=== PATIENT | male | born 1940 | race Caucasian/White ===

== ENCOUNTER 2017-01-28 07:31 | Day surgery (SDC) | payer OTHER, BC ==
[~2017-01-28] VITALS: Ht 182.9 cm; Wt 86.4 kg
[~2017-01-28 07:31] MED LIST: ALEVE220 MG PO; Afrin,Genasal Decon, NS; CELEBREX200 MG PO; COQ-10100 MG PO; CORDYCEPS PO; Coumadin dosing per PO; FISH OIL 1,0001 EAC4 PO; Feosol PO; MAGNESIUM 300300 MG PO; OMEGA III EPA1000 MG PO; Omega III EPA + DHA PO; Senokot S,Pericolace PO; THERAGRAN1 TABLET PO; VITAMIN D1000 INTUN PO; Vicodin,Norco 5/325 PO
== END 2017-01-28 09:20 | disposition home or self-care (01) ==
LOC: PAIN 07:31 → SDC 08:15 → PAIN 09:20
DX: M47.26 Other spondylosis with radiculopathy, lumbar region (principal); M79.652 Pain in left thigh; M48.06 Spinal stenosis, lumbar region; Z87.891 Personal history of nicotine dependence; Z96.643 Presence of artificial hip joint, bilateral
CPT/HCPCS: J1100; J2250; J3010